=== PATIENT | female | born 1985 | race Caucasian/White ===

== ENCOUNTER 2018-09-02 14:01 | Emergency (ER) | payer OTHER, SELFPAY ==
[2018-09-02 14:05] VITALS: BP 120/78; PULSE 104; RESP 16; TEMP 36.7; O2SAT 96
--- NOTE | 2018-09-02 14:30 | DI.RAD_ITS ---
SYMPTOM/DIAGNOSIS; TRAUMA, PAIN LEFT HAND: Three views. No acute fracture or dislocation is identified. No radiopaque foreign bodies are seen in the soft tissues.
--- NOTE | 2018-09-02 15:29 | DI.VRAD_ITS ---
EXAM: XR Left Hand Complete, 3 or more Views EXAM DATE/TIME: 09/02/2018 2:32 PM CLINICAL HISTORY: 33 years old, female; Signs and symptoms; Other: Left fifth digit trauma; Additional info: Deformity to pip TECHNIQUE: XR Left hand 3 or more views. COMPARISON: No relevant prior studies available. FINDINGS: Bones/joints: Bony alignment is anatomic without evidence for fracture or dislocation. Soft tissues: There is some soft tissue swelling at the proximal phalangeal level. IMPRESSION: No evidence for fracture. COMMENT: Preliminary interpretation is based on receipt of 3 image(s). A final report will be issued subsequently. Dictated and Authenticated by: Kate Jordan MD. Ordering:NENA Juarez MD
--- NOTE | 2018-09-02 15:33 | W.ED.GENAD ---
Discharge Plan Disposition Patient Disposition: HOME Condition: Stable Discharge Details Chief Complaint: Orthopedic Clinical Impression: Sprain of left little finger Primary Care Provider: Mara Du ED Provider: Larry Loyola Home Meds and New Rx's Prescriptions: New ibuprofen [IBU] 600 mg tablet 600 mg PO QID PRN (Reason: pain) Qty: 20 RF: 0 Continued gabapentin 300 mg Capsule 300 mg PO DAILY RF: 0 gabapentin 100 mg Capsule 100 mg PO .QHS RF: 0 Discharge Instructions Instructions: Finger Sprain (ED) Additional Instructions: If not improving over the next 1-2 weeks please call orthopedist for reassessment. Otherwise keep finger splint on for the next week and slowly advance activity as tolerated. Feel free to return to the emergency department for any new or significant worsening of symptoms, severe discoloration or loss of sensation to the digit, or any further concerns you may have. Stand Alone Forms: Work Release Referrals: Jayden Henson MD [ [facility] STAFF PHYSICIAN] - Nabil Vaughan MD [ [facility] STAFF PHYSICIAN] - Matteo Cohn MD [ [facility] STAFF PHYSICIAN] - Discharge Data Discharge Date/Time-TO BE ENTERED AT DEPARTURE: 09/02/18 15:50 Medical Decision Making Patient presenting to the emergency department for chief complaint of left fifth digit injury. Patient states that she was playing basketball and the ball hit directly onto the end of her left fifth digit causing extreme amount of pain and discomfort. Patient denies any other injury or trauma. Patient is primarily right-handed. Physical exam shows significant weakness with both flexion and extension of the left fifth digit but tendons do seem intact, normal sensation with two-point discrimination, normal cap refill, some mild dorsal pain to palpation of the fifth metacarpal. Otherwise hand exam is unremarkable and all other digits, metacarpals, and wrist shows no significant findings. Plan to perform radiological imaging pending results. Review of radiological imaging along with radiologist interpretation shows no evidence of fracture or dislocation. Suspect more of a sprain/ligamentous injury to the fifth digit. Patient placed in foam metal splint and encouraged to use [id number] acetaminophen or Motrin as needed for discomfort and to follow-up with orthopedist if not improving over the next 1-2 weeks. Return precautions were discussed. After discussion of diagnosis and plan of care patient has no further needs, questions, or concerns and states clear understanding to return to the emergency department for any worsening symptoms. HPI General Mode of arrival: ambulatory. Date/Time Provider Initiated Documentation: 09/02/18 14:25. Limitations to Documentation: no limitations. Information obtained by: patient and RN notes reviewed. History of Present Illness 33 year old F presents to the emergency department with the chief complaint of left hand injury, described as severe, with intensity rated at 8. Quality is described as sharp, and is localized to the left and upper extremity. Patient started experiencing this minute(s) (20) and it has been constant. No relieving factors improve symptom(s), Movement worsens symptoms . Patient notes no other symptoms.. Patient did receive the following treatments prior to arrival, none Related Data Home Medications Medication Instructions Recorded Confirmed gabapentin 100 mg PO .QHS 09/02/18 09/02/18 gabapentin 300 mg PO DAILY 09/02/18 09/02/18 ibuprofen [IBU] 600 mg PO QID PRN #20 tab 09/02/18 Previous Rx's Medication Instructions Recorded ibuprofen [IBU] 600 mg PO QID PRN #20 tab 09/02/18 Allergies Allergy/AdvReac Type Severity Reaction Status Date / Time Sulfa (Sulfonamide Allergy Intermediate Skin Rash Unverified 09/02/18 14:08 Antibiotics) General Stated Complaint: Orthopedic FAISAL: 4 Review of Systems Cardiovascular Denies syncope Musculoskeletal Reports as per HPI, Denies numbness and Reports tingling Integumentary/Breasts Denies rash, Denies sores and Denies wounds Neurologic Denies syncope, Denies numbness and Reports tingling PFSH Social History Smoking/Tobacco Use Status: Current every day Drug use: Never Do you feel safe in your relationship?: Yes Exam Const General: cooperative and no acute distress Orientation: alert, awake and oriented x3 Resp Effort & Inspection: normal respiratory effort and able to speak in complete sentences Cardio Rate: regular rate Rhythm: regular rhythm Extrem Right upper extremity: normal to inspection Left upper extremity: wrist Details: normal to inspection, normal ROM and normal vascular exam; no tenderness and hand Details: normal capillary refill, neurosensory exam normal, tendon exam abnormal (weakness to 5th digit with both extension and flexion), tenderness Location: of the 5th digit Location: at the MCP joint, at the proximal phalanx, at the middle phalanx and at the PIP joint, vascular exam Details: radial pulse present and normal capillary refill, swelling Location: of the 5th digit Location: at the proximal phalanx and ecchymosis Location: of the 5th digit Location: at the proximal phalanx Course Vital Signs Temperature 36.7 C 09/02/18 14:05 Pulse 104 H 09/02/18 14:05 Respiratory Rate 16 09/02/18 14:05 Blood Pressure 120/78 09/02/18 14:05 Pulse Oximetry 96 09/02/18 14:05 Temperature 36.7 C 09/02/18 14:05 Temperature Source Skin 09/02/18 14:05 Pulse 104 H 09/02/18 14:05 Respiratory Rate 16 09/02/18 14:05 Respiratory Effort Non-Labored 09/02/18 14:05 Blood Pressure 120/78 09/02/18 14:05 Blood Pressure Position Sitting 09/02/18 14:05 Pulse Oximetry 96 09/02/18 14:05 Oxygen Delivery Method Room Air 09/02/18 14:05 Oxygen Flow Rate 0 09/02/18 14:05 Pain Level 10 09/02/18 14:09
--- NOTE | 2018-09-02 15:39 | ED.GENADUL_ITS ---
Discharge Plan Disposition Patient Disposition: HOME Condition: Stable Discharge Details Chief Complaint: Orthopedic Clinical Impression: Sprain of left little finger Primary Care Provider: Mara Du ED Provider: Larry Loyola Home Meds and New Rx's Prescriptions: New ibuprofen [IBU] 600 mg tablet 600 mg PO QID PRN (Reason: pain) Qty: 20 RF: 0 Continued gabapentin 300 mg Capsule 300 mg PO DAILY RF: 0 gabapentin 100 mg Capsule 100 mg PO .QHS RF: 0 Discharge Instructions Instructions: Finger Sprain (ED) Additional Instructions: If not improving over the next 1-2 weeks please call orthopedist for reassessment. Otherwise keep finger splint on for the next week and slowly advance activity as tolerated. Feel free to return to the emergency department for any new or significant worsening of symptoms, severe discoloration or loss of sensation to the digit, or any further concerns you may have. Stand Alone Forms: Work Release Referrals: Jayden Henson MD [ [facility] STAFF PHYSICIAN] - Nabil Vaughan MD [ [facility] STAFF PHYSICIAN] - Matteo Cohn MD [ [facility] STAFF PHYSICIAN] - Discharge Data Discharge Date/Time-TO BE ENTERED AT DEPARTURE: 09/02/18 15:50 Medical Decision Making Patient presenting to the emergency department for chief complaint of left fifth digit injury. Patient states that she was playing basketball and the ball hit directly onto the end of her left fifth digit causing extreme amount of pain and discomfort. Patient denies any other injury or trauma. Patient is primarily right-handed. Physical exam shows significant weakness with both flexion and extension of the left fifth digit but tendons do seem intact, normal sensation with two-point discrimination, normal cap refill, some mild dorsal pain to palpation of the fifth metacarpal. Otherwise hand exam is unremarkable and all other digits, metacarpals, and wrist shows no significant findings. Plan to perform radiological imaging pending results. Review of radiological imaging along with radiologist interpretation shows no evidence of fracture or dislocation. Suspect more of a sprain/ligamentous injury to the fifth digit. Patient placed in foam metal splint and encouraged to use [id number] acetaminophen or Motrin as needed for discomfort and to follow-up with orthopedist if not improving over the next 1-2 weeks. Return precautions were discussed. After discussion of diagnosis and plan of care patient has no further needs, questions, or concerns and states clear understanding to return to the emergency department for any worsening symptoms. HPI General Mode of arrival: ambulatory . Date/Time Provider Initiated Documentation: 09/02/18 14:25 . Limitations to Documentation: no limitations . Information obtained by: patient and RN notes reviewed . History of Present Illness 33 year old F presents to the emergency department with the chief complaint of left hand injury, described as severe, with intensity rated at 8. Quality is described as sharp, and is localized to the left and upper extremity. Patient started experiencing this minute(s) (20) and it has been constant. No relieving factors improve symptom(s), Movement worsens symptoms . Patient notes no other symptoms.. Patient did receive the following treatments prior to arrival, none Related Data Home Medications Medication Instructions Recorded Confirmed gabapentin 100 mg PO .QHS 09/02/18 09/02/18 gabapentin 300 mg PO DAILY 09/02/18 09/02/18 ibuprofen [IBU] 600 mg PO QID PRN #20 tab 09/02/18 Previous Rx's Medication Instructions Recorded ibuprofen [IBU] 600 mg PO QID PRN #20 tab 09/02/18 Allergies Allergy/AdvReac Type Severity Reaction Status Date / Time Sulfa (Sulfonamide Allergy Intermediate Skin Rash Unverified 09/02/18 14:08 Antibiotics) General Stated Complaint: Orthopedic FAISAL: 4 Review of Systems Cardiovascular Denies syncope Musculoskeletal Reports as per HPI, Denies numbness and Reports tingling Integumentary/Breasts Denies rash, Denies sores and Denies wounds Neurologic Denies syncope, Denies numbness and Reports tingling PFSH Social History Smoking/Tobacco Use Status: Current every day Drug use: Never Do you feel safe in your relationship?: Yes Exam Const General: cooperative and no acute distress Orientation: alert, awake and oriented x3 Resp Effort & Inspection: normal respiratory effort and able to speak in complete sentences Cardio Rate: regular rate Rhythm: regular rhythm Extrem Right upper extremity: normal to inspection Left upper extremity: wrist Details: normal to inspection, normal ROM and normal vascular exam; no tenderness and hand Details: normal capillary refill, neurosensory exam normal, tendon exam abnormal (weakness to 5th digit with both extension and flexion), tenderness Location: of the 5th digit Location: at the MCP joint, at the proximal phalanx, at the middle phalanx and at the PIP joint, vascular exam Details: radial pulse present and normal capillary refill, swell ing Location: of the 5th digit Location: at the proximal phalanx and ecchymosis Location: of the 5th digit Location: at the proximal phalanx Course Vital Signs Temperature 36.7 C 09/02/18 14:05 Pulse 104 H 09/02/18 14:05 Respiratory Rate 16 09/02/18 14:05 Blood Pressure 120/78 09/02/18 14:05 Pulse Oximetry 96 09/02/18 14:05 Temperature 36.7 C 09/02/18 14:05 Temperature Source Skin 09/02/18 14:05 Pulse 104 H 09/02/18 14:05 Respiratory Rate 16 09/02/18 14:05 Respiratory Effort Non-Labored 09/02/18 14:05 Blood Pressure 120/78 09/02/18 14:05 Blood Pressure Position Sitting 09/02/18 14:05 Pulse Oximetry 96 09/02/18 14:05 Oxygen Delivery Method Room Air 09/02/18 14:05 Oxygen Flow Rate 0 09/02/18 14:05 Pain Level 10 09/02/18 14:09
== END 2018-09-02 15:50 | disposition home or self-care (01) ==
PROVIDERS: Emergency Provider Nurse Practitioner Family; PCP Nurse Practitioner Family
DX: S63.617A Unspecified sprain of left little finger, initial encounter (principal); W21.05XA Struck by basketball, initial encounter; Y93.67 Activity, basketball
CPT/HCPCS: 99283; 73130; 99282

== ENCOUNTER 2018-12-27 10:08 | Emergency (ER) | payer OTHER, SELFPAY ==
[2018-12-27 10:11] VITALS: BP 128/84; PULSE 98; RESP 18; TEMP 37.2; O2SAT 98
--- NOTE | 2018-12-27 10:20 | ED.GENADUL_ITS ---
Discharge Plan Disposition Patient Disposition: HOME Condition: Good Discharge Details Chief Complaint: Orthopedic Clinical Impression: Abrasion of ankle Primary Care Provider: Mara Du ED Provider: Sabine Hercules Home Meds and New Rx's Prescriptions: Continued gabapentin 300 mg Capsule 300 mg PO DAILY RF: 0 gabapentin 100 mg Capsule 100 mg PO .QHS RF: 0 ibuprofen [IBU] 600 mg tablet 600 mg PO QID PRN (Reason: pain) Qty: 20 RF: 0 Discharge Instructions Instructions: Abrasion (ED) Additional Instructions: Encourage rest, ice, elevation. Tylenol and ibuprofen as needed for discomfort. Please keep wounds clean and dry. Monitor for signs of infection including redness, warmth, drainage, increased pain, fever/chills. If these or other new/worsening symptoms arise please seek care urgently once again. Wash with soap and water and she would typically. Please follow-up with primary care as needed. Tetanus updated today. Referrals: Mara Du [Primary Care Provider] - Discharge Data Discharge Date/Time-TO BE ENTERED AT DEPARTURE: 12/27/18 10:42 Medical Decision Making Patient is a 33-year-old female presenting today with chief complaint of abrasion to the left ankle. She reports a prior to arrival she was walking in a baseball field when she fell in an unseen hole and suffered abrasions to the medial lateral aspect of the colon unknown material. States that there was liquid in the buitrago. Patient is not up-to-date on tetanus, will update this today. On exam, patient has full range of motion. Ambulates normally without any evidence of antalgic gait. Abrasions are superficial, these were cleansed with a baseball field. We will clean his further. I do not see any evidence of a puncture wound or laceration requiring repair. Patient's primary concern for possible infection. Is there is no evidence of puncture wound, the slight laceration, patient is not otherwise immunocompromised, I do not feel that prophylaxis is appropriate at this time. Rather, we will clean the wounds, updated tetanus and discussed wound care. Do not have suspicion for fracture at this point. she was given strict return precautions, in particular the signs of infection. Wound care was discussed. All questions and concerns were addressed, she in agreement with this plan. HPI General Mode of arrival: ambulatory . Date/Time Provider Initiated Documentation: 12/27/18 10:12 . Limitations to Documentation: no limitations . Information obtained by: patient, family and RN notes reviewed . History of Present Illness 33 year old F presents to the emergency department with the chief complaint of left ankle abrasions, described as mild, with intensity rated at 2. Quality is described as aching, and is localized to the left and lower extremity. Patient reports no radiation. Patient started experiencing this minute(s) and it has been constant. Immobilization improves symptom(s), Movement worsens symptoms . Patient notes no other symptoms.. Patient did receive the following treatments prior to arrival, none Related Data Home Medications Medication Instructions Recorded Confirmed gabapentin 100 mg PO .QHS 09/02/18 09/02/18 gabapentin 300 mg PO DAILY 09/02/18 09/02/18 ibuprofen [IBU] 600 mg PO QID PRN #20 tab 09/02/18 Previous Rx's Medication Instructions Recorded ibuprofen [IBU] 600 mg PO QID PRN #20 tab 09/02/18 Allergies Allergy/AdvReac Type Severity Reaction Status Date / Time Sulfa (Sulfonamide Allergy Intermediate Skin Rash Unverified 09/02/18 14:08 Antibiotics) General Stated Complaint: Orthopedic FAISAL: 4 Review of Systems Constitutional Reports as per HPI, Denies chills, Denies fever(s), Denies headache(s) and Denies weakness ENT Denies headache(s) Cardiovascular Reports as per HPI Respiratory Reports as per HPI and Denies cough Musculoskeletal Reports as per HPI and Denies tingling Integumentary/Breasts Reports as per HPI and Reports wounds Neurologic Reports as per HPI, Denies headache(s), Denies tingling, Denies paresthesias and Denies weakness [facility] Social History Smoking/Tobacco Use Status: Current every day Alcohol Intake: never Drug use: Never Do you feel safe in your relationship?: Yes Exam Const General: cooperative, healthy appearing, comfortable, no acute distress, well developed and well groomed Nutritional Appearance: average body habitus and well nourished Orientation: alert and awake Resp Effort & Inspection: normal respiratory effort, able to speak in complete sentences and no respiratory distress Cardio Rate: regular rate Rhythm: regular rhythm Skin General skin exam: no ecchymosis, no erythema, no fluctuance and no induration Trauma: abrasion (to medial and lateral left ankle.) and no punctures noted Neuro General: alert and awake Cognition: normal cognition Speech: speech normal Gait: normal gait Motor: muscle tone normal throughout Sensory Exam: no sensory deficits noted Extrem Left lower extremity: full ROM, normal capillary refill, no joint enlargement, knee Details: normal to inspection; no tenderness, lower leg Details: normal to inspection; no tenderness, ankle Details: no edema, normal ROM and abrasion; inspection abnormal (abrasions as above), no tenderness, no swelling, no warmth, no ecchymosis, no crepitus, no penetrating wound and achilles tendon exam no rmal and foot Details: normal capillary refill, normal to inspection, no edema, vascular exam Details: dorsalis pedis pulse present and posterior tibial pulse present and tendon exam Details: active flexion normal and active extension normal; no tenderness, no lacerations and no ecchymosis; abnormal to inspection (abrasions as above) Psych Appearance: grossly normal and well kempt Mental Status: mental status grossly normal Speech and Movement: speech and movement normal Course Vital Signs Temperature 37.2 C 12/27/18 10:11 Pulse 98 H 12/27/18 10:11 Respiratory Rate 18 12/27/18 10:11 Blood Pressure 128/84 12/27/18 10:11 Pulse Oximetry 98 12/27/18 10:11 Temperature 37.2 C 12/27/18 10:11 Temperature Source Temporal Artery Scan 12/27/18 10:11 Pulse 98 H 12/27/18 10:11 Respiratory Rate 18 12/27/18 10:11 Respiratory Effort Non-Labored 12/27/18 10:11 Blood Pressure 128/84 12/27/18 10:11 Blood Pressure Position Sitting 12/27/18 10:11 Pulse Oximetry 98 12/27/18 10:11 Oxygen Delivery Method Room Air 12/27/18 10:11 Oxygen Flow Rate 0 12/27/18 10:11 Pain Level 0 12/27/18 10:17
== END 2018-12-27 10:42 | disposition home or self-care (01) ==
LOC: ER 10:30
PROVIDERS: Emergency Provider Physician Assistant; PCP Nurse Practitioner Family
DX: S90.512A Abrasion, left ankle, initial encounter (principal); W17.2XXA Fall into hole, initial encounter
CPT/HCPCS: 90471; 99284; 99283

== ENCOUNTER 2018-12-29 20:56 | Emergency (ER) | payer OTHER, SELFPAY ==
[2018-12-29 21:03] VITALS: BP 119/82; PULSE 105; RESP 18; TEMP 36.6; O2SAT 99
--- NOTE | 2018-12-29 21:12 | DI.RAD_ITS ---
SYMPTOM/DIAGNOSIS: FELL, NOW PAIN AND SWELLING LEFT ANKLE: Three views were obtained. The ankle mortise is well maintained. No fracture is seen.
--- NOTE | 2018-12-29 21:13 | W.ED.GENAD ---
Discharge Plan Discharge Details Chief Complaint: Orthopedic Primary Care Provider: Mara Du ED Provider: Nabil Smith Home Meds and New Rx's Prescriptions: No Action gabapentin 300 mg Capsule 300 mg PO DAILY RF: 0 gabapentin 100 mg Capsule 100 mg PO .QHS RF: 0 ibuprofen [IBU] 600 mg tablet 600 mg PO QID PRN (Reason: pain) Qty: 20 RF: 0 Medical Decision Making 33-year-old female presents from home with persistent ankle pain and swelling after fall 2 days ago. She was seen in the emergency department and discharged home. She now has ecchymosis and discomfort that is increasing. No fever, there is a significant erythema, but must exclude cellulitis developing. She is referred for x-ray today which does not reveal underlying fracture. I do think she is at risk for developing skin infection and I will place her on a course of Keflex. She will utilize a equalizer walking boot as needed for comfort. She is stable for discharge home HPI General Mode of arrival: ambulatory. Date/Time Provider Initiated Documentation: 12/29/18 21:02. Limitations to Documentation: no limitations. Information obtained by: patient. History of Present Illness 33 year old F presents to the emergency department with the chief complaint of Left ankle pain, described as moderate, Quality is described as aching and dull, and is localized to the left and lower extremity. Patient reports no radiation. Patient started experiencing this day(s) and it has been constant. Rest improves symptom(s), Movement worsens symptoms . Patient notes no other symptoms.. Patient did receive the following treatments prior to arrival, none Related Data Home Medications Medication Instructions Recorded Confirmed gabapentin 100 mg PO .QHS 09/02/18 12/29/18 gabapentin 300 mg PO DAILY 09/02/18 12/29/18 ibuprofen [IBU] 600 mg PO QID PRN #20 tab 09/02/18 12/29/18 Previous Rx's Medication Instructions Recorded ibuprofen [IBU] 600 mg PO QID PRN #20 tab 09/02/18 Allergies Allergy/AdvReac Type Severity Reaction Status Date / Time Sulfa (Sulfonamide Allergy Intermediate Skin Rash Unverified 12/29/18 21:07 Antibiotics) General Stated Complaint: Orthopedic FAISAL: 4 Review of Systems Review of Systems 6 systems reviewed and otherwise negative [facility] Social History Smoking/Tobacco Use Status: Current every day Alcohol Intake: never Drug use: Never Do you feel safe in your relationship?: Yes Exam Narrative Exam Narrative: GEN: awake, alert, oriented 3. Pleasant, well groomed, interactive. HEAD: Normocephalic, atraumatic EXT: Full ROM, there are abrasions to the bilateral aspects of the left lower extremity distal tibia. Tenderness, swelling, ecchymosis of the ankle. 2+ DP bilaterally. Range of motion is intact. Sensation intact throughout. Neuro: Grossly normal neurologic exam, conversant, interactive. Psych: Speech fluent, thoughts congruent, affect normal Course Vital Signs Temperature 36.6 C 12/29/18 21:03 Pulse 105 H 12/29/18 21:03 Respiratory Rate 18 12/29/18 21:03 Blood Pressure 119/82 12/29/18 21:03 Pulse Oximetry 99 12/29/18 21:03 Temperature 36.6 C 12/29/18 21:03 Temperature Source Temporal Artery Scan 12/29/18 21:03 Pulse 105 H 12/29/18 21:03 Respiratory Rate 18 12/29/18 21:03 Respiratory Effort Non-Labored 12/29/18 21:03 Blood Pressure 119/82 12/29/18 21:03 Blood Pressure Position Sitting 12/29/18 21:03 Pulse Oximetry 99 12/29/18 21:03 Oxygen Delivery Method Room Air 12/29/18 21:03 Oxygen Flow Rate 0 12/29/18 21:03 Pain Level 8 12/29/18 21:08
[2018-12-29] MEDS: Cephalexin 500 MG CAP PO (21:28)
[2018-12-29] MEDS: Acetaminophen 500 MG TAB 1000 MG PO (21:29)
--- NOTE | 2018-12-29 21:38 | DI.VRAD_ITS ---
EXAM: XR Left Ankle EXAM DATE/TIME: 12/29/2018 9:13 PM CLINICAL HISTORY: 33 years old, female; Ankle; Left; Prior surgery; Patient HX: Fall, willie pain, swelling; Per PT: Fell in sinkhole TECHNIQUE: Imaging protocol: XR Left ankle. Views: 3 or more views. COMPARISON: No relevant prior studies available. FINDINGS: Bones/joints: No recent fracture or dislocation is identified. Soft tissues: Normal. IMPRESSION: No recent fracture or dislocation is identified. Dictated and Authenticated by: Mina Cardozo MD. Ordering:SPENCER Ferrer MD
== END 2018-12-29 21:34 | disposition home or self-care (01) ==
PROVIDERS: Emergency Provider Emergency Medicine; PCP Nurse Practitioner Family
DX: L03.116 Cellulitis of left lower limb (principal)
CPT/HCPCS: 29515; 99283; 73610; L4361

== ENCOUNTER 2019-03-25 17:23 | Outpatient (REF) | payer OTHER, SELFPAY | END 2019-03-25 17:43 | LOC: NCHCO 17:23 | PROVIDERS: PCP Nurse Practitioner Family; Visit Provider Nurse Practitioner Family | DX: N39.0 Urinary tract infection, site not specified (principal) | CPT/HCPCS: 87077; 87086; 87186 ==

== ENCOUNTER 2019-06-17 13:50 | Emergency (ER) | payer OTHER, SELFPAY ==
[2019-06-17 13:54] VITALS: BP 119/85; PULSE 120; RESP 18; TEMP 36.9; O2SAT 96
--- NOTE | 2019-06-17 14:07 | ED.GENADUL_ITS ---
Discharge Plan Disposition Patient Disposition: HOME Condition: Good Discharge Details Chief Complaint: Abd Prob Clinical Impression: Abdominal pain, Gastritis Primary Care Provider: Mara Du ED Provider: Sharath Crowell Home Meds and New Rx's Prescriptions: No Action gabapentin 300 mg Capsule 300 mg PO DAILY RF: 0 gabapentin 100 mg Capsule 100 mg PO .QHS RF: 0 ibuprofen [IBU] 600 mg tablet 600 mg PO QID PRN (Reason: pain) Qty: 20 RF: 0 Discharge Instructions Instructions: Gastritis (ED), Abdominal Pain (ED) Additional Instructions: At this time your CT scan shows no evidence of appendicitis or other significant abnormality in the stomach. Your hernia appears mildly irritated, but no other significant abnormalities. At this time feel that you may still be dealing with continued mild irritation from most likely a virus before. Recommend continue to drink fluids, stick with soups and Jell-O. I would recommend gradually adding plain rice, plain oatmeal, bananas, and applesauce. Please continue to take Pepto-Bismol. If you notice any worsening of your symptoms, or any new symptoms such as vomiting, diarrhea, fever, chills, shortness of breath, chest pain, numbness, weakness, or fainting , please return immediately to the emergency department for reevaluation. Please follow up with your primary care provider as soon as possible for reassessment and reevaluation. As always, it was a pleasure participating in your medical care today. Referrals: Mara Du [Primary Care Provider] - Discharge Data Discharge Date/Time-TO BE ENTERED AT DEPARTURE: 06/17/19 18:00 Medical Decision Making <Shira Ford MD - Last Filed: 06/28/19 10:02> Karoline Almeida is a 34 y/o woman with history of abdominal hernias status post repair presenting to the emergency department with right lower quadrant pain, diarrhea, vomiting and fever now resolved. On exam patient is very well and nontoxic appearing. Benign cardiopulmonary exam. Mild McBurney's point tenderness to palpation without rebound or guarding, no other abdominal tenderness. Concern for possible appendicitis versus gastroenteritis versus other. Exam/history is not consistent with acute aortic process, sepsis, ovarian torsion. Plan for screening labs, CT abdomen/pelvis, IV fluid hydration. Patient declines pain medication at this time. Labs reviewed, significant for mild leukocytosis, normal creatinine, negative UA. Patient signed out at time of shift change with CT abdomen/pelvis, reassessment pending. Medical Records Medical records reviewed: Yes I reviewed the patient's medical records. Lab Data Lab results reviewed: Yes I reviewed the patient's lab results. <Sharath Crowell, DO - Last Filed: 06/17/19 17:56> Please refer to Dr. Shira Ford's note for HPI, physical exam, and initial assessment and plan. Patient was signed out to me by my colleague Dr. Ford, pending CT scan of the abdomen. Per history the patient has had mild nausea, upset stomach with mild diarrhea for the last few days, she has also had a mild fever. Upon arrival here she had mild right lower quadrant pain, CT scan was ordered to evaluate for acute intra-abdominal process. Laboratory work-up was notably unremarkable, white count of 11.34, minimal left shift, no bandemia. No electrolyte abnormalities, urinalysis negative. CT scan shows evidence of bibasilar infiltrates versus atelectasis however clinically the patient has no significant cough shortness of breath or clinical symptoms of pneumonia. I suspect that this is atelectasis and not pneumonia as there is no clinical evidence of that. She does have a small periumbilical hernia containing omental fat with infiltration into the subcutaneous tissue, however there is no evidence of kennedy abscess, with no significant other abnormality on labs there is no evidence of hernia incarceration. Repeat bedside exam time of discharge demonstrates minimal tenderness at the hernia location, it is easily reducible, with no evidence of strangulation or incarceration. At this time I feel that the patient is likely recovering from what I would suspect to be initially a viral gastroenteritis, with no other evidence at this time of an acute surgical pathology of the abdomen. Patient is feeling well and would like to go home. Will discharge with recommendations for continued liquid diet with gradual progress to applesauce, bananas, rice and oatmeal. We discussed red flags which to return as well as the importance of close follow-up with her primary care provider Dr. Mara Du. I have extensively reviewed the treatment plan and discharge instructions with the patient. I have addressed all patient concerns at this time. The patient was made aware of what symptoms to monitor for that would warrant a return to the emergency department. Discussed the plan with the patient, they demonstrate verbal understanding and agreement with our assessment and plan at this time. Also of note though the patient has had mild diarrhea she has had no melena, hematochezia, recent antibiotics, foreign travel, or other sick contacts. No clinical evidence of significant infectious diarrhea. FINDINGS: Lungs: Bibasilar infiltrates versus atelectasis. Liver: Normal. No mass. Gallbladder and bile ducts: Normal. No calcified stones. No ductal dilation. Pancreas: Normal. No ductal dilation. Spleen: Normal. No splenomegaly. Adrenals: Normal. No mass. Kidneys and ureters: Normal. No hydronephrosis. Stomach and bowel: Contracted stomach. Mild prominence of proximal small bowel with enhancement of the wall. The jejunum and ileum are unremarkable. Appendix: No evidence of appendicitis. Intraperitoneal space: Unremarkable. No free air. No significant fluid collection. Vasculature: Unremarkable. No abdominal aortic aneurysm. Lymph nodes: Unremarkable. No enlarged lymph nodes. Bladder: Distended urinary bladder with the dome near L5-S1. Reproductive: The uterus and left ovary are not identified. The right ovary contains several follicular cysts. Bones/joints: Unremarkable. No acute fracture Soft tissues: Right para umbilical hernia containing omental fat series 3, image 42 with inflammation of the subcutaneous tissue. IMPRESSION: 1. Bibasilar infiltrates versus atelectasis. 2. Right paraumbilical hernia containing omental fat with infiltration of the subcutaneous tissue 3. Contracted stomach. Prominent of proximal small bowel without evidence of obstruction. 4. Distended urinary bladder. Thank you for allowing us to participate in the care of your patient. Dictated and Authenticated by: Milagro Frost MD 06/17/2019 5:29 PM Eastern Time ([place] & [place]) HPI <Shira Ford MD - Last Filed: 06/28/19 10:02> General Mode of arrival: ambulatory . Date/Time Provider Initiated Documentation: 06/17/19 14:06 . Limitations to Documentation: no limitations . Information obtained by: patient, RN notes reviewed and old records reviewed . HPI Narrative: Karoline Almeida is a 34 y/o woman with history of abdominal hernias, hysterectomy in the past presenting to the emergency department with abdominal pain. Patient reports that 3 days ago she developed vomiting, and also had a fever to 104. Patient reports that during that time she noticed a red rash. Patient reports that the next day her vomiting resolved, as did her fever and rash. Patient reports that she has had no fever or vomiting since then. Patient reports that she then developed diarrhea, with last episode late yesterday. Patient has not had a bowel movement since then. Patient reports that she had had no pain up until this morning at 1 AM, when she was awoken with right lower quadrant pain. Patient reports that pain is worse with walking. She denies any other pain, shortness of breath, cough, nasal congestion, numbnes s, weakness, constipation. Related Data Home Medications Medication Instructions Recorded Confirmed gabapentin 100 mg PO .QHS 09/02/18 06/17/19 gabapentin 300 mg PO DAILY 09/02/18 06/17/19 ibuprofen [IBU] 600 mg PO QID PRN #20 tab 09/02/18 06/17/19 Previous Rx's Medication Instructions Recorded ibuprofen [IBU] 600 mg PO QID PRN #20 tab 09/02/18 Allergies Allergy/AdvReac Type Severity Reaction Status Date / Time Sulfa (Sulfonamide Allergy Intermediate Skin Rash Unverified 06/17/19 13:59 Antibiotics) General Stated Complaint: Abd Prob FAISAL: 3 Review of Systems <Shira Ford MD - Last Filed: 06/28/19 10:02> Narrative: Constitutional: denies fevers Eyes: denies eye pain ENT: denies ear pain, dental pain, sore throat Cardiovascular: denies chest pain Respiratory: denies SOB, cough GI: Denies melena, hematochezia, reports abdominal pain, vomiting, diarrhea : denies flank pain, dysuria MSK: denies back pain, neck pain, arthralgias, myalgias Skin: denies rash Neuro: denies headaches, numbness, weakness PFSH <Shira Ford MD - Last Filed: 06/28/19 10:02> Social History Smoking/Tobacco Use Status: Current every day Alcohol Intake: never Drug use: Never Do you feel safe at home: Yes Do you feel safe in your relationship?: Yes Exam <Shira Ford MD - Last Filed: 06/28/19 10:02> Narrative Exam Narrative: Constitutional: well and [id number], pleasant, conversing normally HENT: head atraumatic/normocephalic/normal inspection, mucous membranes moist Eyes: conjunctiva normal, sclera normal, pupils 3mm b/l Neck: no stridor, normal ROM, trachea midline Chest: normal inspection Resp: normal work of breathing, LCTAB Cardio: normal rate, normal rhythm, no murmur appreciated GI: abdomen soft, mild tenderness to palpation right lower quadrant, positive tenderness at McBurney's point, no rebound, no guarding, no other abdominal tenderness palpation, no pelvic or suprapubic tenderness to palpation, non- distended Back: normal inspection, no rash Skin: warm, dry, normal color, no rash Neuro: alert, not altered, grossly non-focal, normal tone Ext: no edema Psych: normal mood, normal affect, normal behavior Course <Shira Ford MD - Last Filed: 06/28/19 10:02> Vital Signs Vital signs: Vital Signs Temperature 36.9 C 06/17/19 13:54 Pulse 120 H 06/17/19 13:54 Respiratory Rate 18 06/17/19 13:54 Blood Pressure 119/85 06/17/19 13:54 Pulse Oximetry 96 06/17/19 13:54 Temperature 36.9 C 06/17/19 13:54 Temperature Source Temporal Artery Scan 06/17/19 13:54 Pulse 120 H 06/17/19 13:54 Respiratory Rate 18 06/17/19 13:54 Respiratory Effort Non-Labored 06/17/19 14:00 Blood Pressure 119/85 06/17/19 13:54 Blood Pressure Position Sitting 06/17/19 13:54 Pulse Oximetry 96 06/17/19 13:54 Oxygen Delivery Method Room Air 06/17/19 13:54 Oxygen Flow Rate 0 06/17/19 13:54 Pain Level 7 06/17/19 13:54 Sign Out <Shira Ford MD - Last Filed: 06/28/19 10:02> Sign Out Data: Sign Out Comment: Patient signed out to Dr. Crowell at time of shift change with CT abdomen/pelvis pending Last updated by Shira Ford MD at 06/17/19 17:19
[2019-06-17] MEDS: Normal Saline 1,000 ML 1000 ML IV (14:20)
[2019-06-17 14:21] LABS: Bilirubin Negative (Negative); Blood Trace-intact (Negative); Clarity Clear (Clear); Glucose Negative (Negative); Ketones Negative (Negative); Leukocyte Esterase Negative (Negative); Nitrite Negative (Negative); Urobilinogen 0.2 EU/dL (Up TO 0.2); pH 5.5 (5-8)
[2019-06-17 14:34] LABS: Abs Immature Grans 0.03 k/cumm (0.0-0.09); Absolute Basophil Count 0.06 k/cumm (0.0-0.2); Absolute Eosinophil Count 0.16 k/cumm (0.0-0.7); Absolute Lymphocyte Count 3.22 k/cumm (1.2-3.4); Absolute Monocyte Count 0.59 k/cumm (0.11-0.7); Absolute Neutrophil Count 7.28 k/cumm (1.2-6.7); Basophils % 0.5; Eosinophils % 1.4; HCT 40.2 % (36.0-46.0); HGB 13.8 g/dL (12.0-15.5); Immature Grans % 0.3; Lymphocytes % 28.4; Mean Corp. HGB Concentration 34.3 g/dL (32.0-36.0); Mean Corpuscular Hemoglobin 30.4 pg (27.0-33.0); Mean Corpuscular Volume 88.5 fL (80-95); Mean Platelet Volume 10.1 fL (8.0-11.0); Monocytes % 5.2; Neutrophils % 64.2; Platelet Count 345 x1000/uL (130-400); RBC 4.54 m/cumm (4.00-5.20); RBC Distribution Width 12.4 % (11.7-14.6); White Blood Cell Count 11.34 k/cumm (4.4-10.8)
[2019-06-17 14:39] LABS: Epithelial Cells Many HPF (Negative); RBC Negative HPF (0-2); WBC 0-2 HPF (0-5)
[2019-06-17 14:40] LABS: Bacteria Few HPF (Negative); C & S Indicated? No/Sq. Contamination; Casts Negative LPF (Negative); Crystals Negative HPF (Negative); Mucus Negative (Negative)
[2019-06-17 14:57] LABS: ALT 19 U/L (14-59); AST 14 U/L (15-37); Albumin 4.2 g/dL (3.4-5.0); Alkaline Phosphatase 78 U/L (46-116); Anion Gap 11.4 mmol/L (3-11); BUN 9 mg/dL (7-18); Bilirubin, Total 0.2 mg/dL (0.2-1.0); CO2 24.6 mmol/L (21.0-32.0); CREATININE 0.65 mg/dL (0.55-1.02); Chloride 104 mmol/L (98-107); Glucose 98 mg/dL (74-106); Lipase 71 U/L (73-393); Potassium 3.6 mmol/L (3.5-5.1); Sodium 140 mmol/L (136-145); Total Protein 7.3 g/dL (6.4-8.2)
[2019-06-17] MEDS: Ondansetron 4 MG/2 ML VIAL IVP (15:27)
[2019-06-17] MEDS: Omnipaque 350 MG/ML 100 ML BTL IJ (16:47)
--- NOTE | 2019-06-17 16:47 | DI.CT_ITS ---
EXAM: CT ABDOMEN PELVIS W CLINICAL HISTORY: RLQ pain, vomiting, diarrhea TECHNIQUE: Imaging Protocol: Axial computed tomography images with coronal and sagittal reformatted images were created and reviewed CONTRAST MATERIAL: Intravenous: Omnipaque 350 Contrast volume:100 mL contrast route:IV - Oral: No COMPARISON: No exams were available for comparison FINDINGS: ABDOMEN: Lung Bases: Bilateral basilar infiltrates are present. Liver: Normal density. No measurable mass. The portal, superior mesenteric and splenic veins are chan nt. Gallbladder and biliary tract: No radiodense calculus or dilation. Pancreas: Normal density, no abnormal calcifications or inflammatory process. Spleen: Normal. Kidneys: Normal size, contour and axis. No radiodense stones or obstructive uropathy. No masses seen. Adrenal glands: No masses seen. Abdominal Aorta: Abdominal portion non-dilated. Incidental note is made of a retroaortic left renal vein. PELVIS: Bladder: Distended but no wall thickening is seen. Bowel: The stomach is not distended. There is no bowel wall thickening. There is a normal appendix in the right lower quadrant. Peritoneal cavity: No ascites, collection or mesenteric inflammatory response. There is a small fat c ontaining right paraumbilical hernia Bones: Within normal limits. Reproductive organs: Within normal limits. Right ovary is mildly enlarged with multiple follicular cy sts. The left ovary is not visualized. Lymph nodes: Unremarkable. Impression: 1. Small bilateral basilar pulmonary infiltrates. This may represent atelectasis or pneumonia. 2. Normal appendix. 3. No evidence of an acute abdominal or pelvic process. DATA REPOSITORY: All CT scans at this facility are submitted to the National Radiology Data Registry (NRDR) Dose Index Registry (DIR) with the [employer] (ACR). RADIATION OPTIMIZATION: All CT scans at this facility use at least one of these dose optimization te chniques: automated exposure control; mA and/or kV adjustment per patient size (includes targeted exa ms where dose is matched to clinical indication); or iterative reconstruction.
--- NOTE | 2019-06-17 17:29 | DI.VRAD_ITS ---
PROCEDURE INFORMATION: Exam: CT Abdomen And Pelvis With Contrast Exam date and time: 06/17/2019 4:44 PM Age: 34 years old Clinical indication: Nausea and vomiting TECHNIQUE: Imaging protocol: Computed tomography of the abdomen and pelvis with intravenous contrast. COMPARISON: No relevant prior studies available. FINDINGS: Lungs: Bibasilar infiltrates versus atelectasis. Liver: Normal. No mass. Gallbladder and bile ducts: Normal. No calcified stones. No ductal dilation. Pancreas: Normal. No ductal dilation. Spleen: Normal. No splenomegaly. Adrenals: Normal. No mass. Kidneys and ureters: Normal. No hydronephrosis. Stomach and bowel: Contracted stomach. Mild prominence of proximal small bowel with enhancement of the wall. The jejunum and ileum are unremarkable. Appendix: No evidence of appendicitis. Intraperitoneal space: Unremarkable. No free air. No significant fluid collection. Vasculature: Unremarkable. No abdominal aortic aneurysm. Lymph nodes: Unremarkable. No enlarged lymph nodes. Bladder: Distended urinary bladder with the dome near L5-S1. Reproductive: The uterus and left ovary are not identified. The right ovary contains several follicular cysts. Bones/joints: Unremarkable. No acute fracture. Soft tissues: Right para umbilical hernia containing omental fat series 3, image 42 with inflammation of the subcutaneous tissue. IMPRESSION: 1. Bibasilar infiltrates versus atelectasis. 2. Right paraumbilical hernia containing omental fat with infiltration of the subcutaneous tissue 3. Contracted stomach. Prominent of proximal small bowel without evidence of obstruction. 4. Distended urinary bladder. Dictated and Authenticated by: Milagro Frost MD. Ordering:REGIS Silva MD
[2019-06-17 18:05] VITALS: BP 119/85; PULSE 120; RESP 18; TEMP 36.9; O2SAT 96
== END 2019-06-17 18:00 | disposition home or self-care (01) ==
PROVIDERS: Student in an Organized Health Care Education/Training Program; Emergency Provider Student in an Organized Health Care Education/Training Program; PCP Nurse Practitioner Family
DX: R11.0 Nausea (principal); R10.31 Right lower quadrant pain; R50.9 Fever, unspecified; K29.00 Acute gastritis without bleeding
CPT/HCPCS: 36415; 80053; 81025; 83690; 96361; 96374; 96375; 96376; 99285; 74177; 81003; 81015; 85025; 99281; J2405; J3490

== ENCOUNTER 2020-04-09 01:45 | Outpatient (CLI) | payer OTHER, SELFPAY ==
--- NOTE | 2020-04-09 | DI.US_ITS ---
EXAM: US SOFT TISSUE EXTREMITY CLINICAL HISTORY: RT HAND PAIN, M79.641,PARESTHESIAS RT LAST 2 DIGITS, ? GANGLION CYST ULNAR. TECHNIQUE: Ultrasound was performed using standard protocol. COMPARISON: No exams were available for comparison FINDINGS: Sonographic assessment utilizing grayscale and color Doppler imaging was performed and targeted to th e area of clinical concern. No cystic or solid masses are seen sonographically in the area of concern. IMPRESSION: Negative examination. DATA REPOSITORY:
== END 2020-04-09 02:05 ==
PROVIDERS: PCP Nurse Practitioner Family; Visit Provider Nurse Practitioner Family
DX: M79.641 Pain in right hand (principal); R20.2 Paresthesia of skin
CPT/HCPCS: 76881

== ENCOUNTER 2020-05-13 00:51 | Outpatient (CLI) | payer OTHER, SELFPAY ==
--- NOTE | 2020-05-13 09:35 | DI.MRI_ITS ---
EXAM: MR UPPER JOINT RT WO CLINICAL HISTORY: R HAND PAIN AND NUMBNESS,ULNAR NERVE ENTRAPMENT RT WRIST,G56.20. TECHNIQUE: Multiplanar multisequence MRI was performed. COMPARISON: None. FINDINGS: BONES: There is no fracture or contusion pattern. JOINTS: The radiocarpal joint is unremarkable. The carpal joints are unremarkable. TENDONS: Flexors: Unremarkable. Extensors: Unremarkable. MUSCLES: Unremarkable. MEDIAN NERVE: Unremarkable on this noncontrast examination. SOFT TISSUES: Unremarkable. LIGAMENTS: Unremarkable. TRIANGULAR FIBROCARTILAGE: There is intermediate signal seen within the substance of the TFCC suspici ous for degeneration. OTHER: There is a small cyst adjacent to the posterior medial aspect of the pisotriquetral joint whic h may represent a small synovial cyst. It does not appear to impact upon the course of the ulnar ner ve. There is no soft tissue mass seen in or around the region of the ulnar nerve. IMPRESSION: 1. No evidence of a soft tissue mass in or around the region of the ulnar nerve. 2. Intermediate signal seen within the substance of the TFCC suspicious for degeneration. Partial te ar cannot be excluded. 3. Small cyst adjacent to the posterior medial aspect of the pisotriquetral joint which may represent a small synovial cyst. DATA REPOSITORY:
== END 2020-05-13 01:11 ==
PROVIDERS: PCP Nurse Practitioner Family; Visit Provider Student in an Organized Health Care Education/Training Program
DX: G56.20 Lesion of ulnar nerve, unspecified upper limb (principal)
CPT/HCPCS: 73221

== ENCOUNTER 2021-07-29 19:05 | Emergency (ER) | payer OTHER, SELFPAY ==
[2021-07-29 19:18] VITALS: BP 124/82; PULSE 112; RESP 16; TEMP 36.7; O2SAT 96
--- NOTE | 2021-07-29 19:45 | ED.GENADUL_ITS ---
Discharge Plan Disposition Patient Disposition: HOME Condition: Stable Discharge Details Clinical Impression: Cough Primary Care Provider: Mara Du ED Provider: Jd Gregory Home Meds and New Rx's Prescriptions: Continued gabapentin 300 mg Capsule 300 mg PO DAILY RF: 0 gabapentin 100 mg Capsule 100 mg PO .QHS RF: 0 ibuprofen [IBU] 600 mg tablet 600 mg PO QID PRN (Reason: pain) Qty: 20 RF: 0 Discharge Instructions Instructions: Acute Cough (ED) Additional Instructions: Given your symptoms alongside a positive home test, presumptively I believe you have Covid. We discussed the latest CDC quarantining guidelines. A Covid test has been obtained and is pending, will likely result in the next 2-3 days. Please watch for new or worsening symptoms and return to the ER for any concerns. Kbgn-wwi-yorwkjx medications as directed for symptomatic control. Please contact the office of your primary care provider tomorrow to discuss your ER visit need for outpatient reevaluation Medical Decision Making 36-year-old female, current smoker, fully vaccinated against COVID with her booster, presents for symptoms that began this morning. Dry cough, loss of taste and smell. Denies fever, chest pain, shortness of breath. Patient took a home Covid test which was positive, work needed another test to confirm, she was unable to get to a testing site so came to the ER for evaluation. In triage her heart rate was 112 however during my examination was 92. She appears well, nontoxic, O2 sat 96% on room air, extremely low suspicion for PE. Patient is only requesting a COVID test. Will obtain a send out Covid test. The latest [facility] recommendations for quarantining were discussed. We discussed the importance of hgrb-qha-hysojet medications as directed for symptomatic control. Strict discharge and return precautions were provided Medical Records Medical records reviewed: Yes I reviewed the patient's medical records. HPI General Mode of arrival: ambulatory . Date/Time Provider Initiated Documentation: 07/29/21 19:06 . Limitations to Documentation: no limitations . Information obtained by: patient . History of Present Illness 36 year old F presents to the emergency department with the chief complaint of Requesting a COVID test, described as mild, with intensity rated at 1. Quality is described as aching, and is localized to the face and chest. Patient reports no radiation. Patient started experiencing this hour(s) (12) and it has been constant. No relieving factors improve symptom(s), No exacerbating factors reported . Patient notes cough and other (Nasal congestion, loss of taste and smell); denies fever/chills and headaches. Patient did receive the following treatments prior to arrival, none Related Data Home Medications Medication Instructions Recorded Confirmed gabapentin 100 mg PO .QHS 09/02/18 07/29/21 gabapentin 300 mg PO DAILY 09/02/18 07/29/21 ibuprofen [IBU] 600 mg PO QID PRN #20 tab 09/02/18 07/29/21 Previous Rx's Medication Instructions Recorded ibuprofen [IBU] 600 mg PO QID PRN #20 tab 09/02/18 Allergies Allergy/AdvReac Type Severity Reaction Status Date / Time Sulfa (Sulfonamide Allergy Intermediate Skin Rash Unverified 07/29/21 19:24 Antibiotics) General Stated Complaint: GenMedical FAISAL: 4 Review of Systems Constitutional Constitutional: Denies fever(s) and Denies headache(s) ENT Ears, Nose, Mouth, and Throat: Denies headache(s) and Denies sore throat Cardiovascular Cardiovascular: Denies chest pain and Denies dyspnea Respiratory Respiratory: Reports cough and Denies dyspnea Gastrointestinal Gastrointestinal: Denies abdominal pain, Denies nausea and Denies vomiting Musculoskeletal Musculoskeletal: Denies myalgias Neurologic Neurologic: Denies headache(s) PFSH All Active Problems (Updated 07/29/21 @ 19:50 by LEILA Corbett) Cough (Acute) 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) Right Guyon's canal syndrome Left ankle sprain (Acute) Contusion of left little finger (Chronic) Social History Smoking/Tobacco Use Status: Current every day Tobacco Type: cigarettes Smoking risk assessment performed?: Yes Alcohol Intake: never Drug use: Never Substance use type: does not use Do you feel safe at home: Yes Do you feel safe in your relationship?: Yes Exam Const General: cooperative, healthy appearing, comfortable and no acute distress Orientation: alert, awake and oriented x3 HENMT Head: normal to inspection, normocephalic and atraumatic Face and sinus: normal facial exam Mouth: moist mucous membranes Throat: posterior oropharynx normal Eyes General: appearance normal, both eyes and all related structures Conjunctivae: conjunctivae normal Neck Neck: normal visual inspection, full ROM, no meningeal signs, trachea midline and supple Resp Effort & Inspection: normal respiratory effort and able to speak in complete sentences Auscultation: clear to auscultation bilaterally Cardio Rate: regular rate Rhythm: regular rhythm Skin General skin exam: no rashes or lesions noted Neuro General: patient alert, patient awake, moves all extremities and no focal motor deficits Sensory Exam: no sensory deficits noted Psych Appearance: grossly normal Mental Status: mental status grossly normal Course Vital Signs Vital signs: Vital Signs Temperature 36.7 C 07/29/21 19:18 Pulse 112 H 07/29/21 19:18 Respiratory Rate 16 07/29/21 19:18 Blood Pressure 124/82 07/29/21 19:18 Pulse Oximetry 96 07/29/21 19:18 Temperature 36.7 C 07/29/21 19:18 Temperature Source Skin 07/29/21 19:18 Pulse 112 H 07/29/21 19:18 Respiratory Rate 16 07/29/21 19:18 Respiratory Effort Non-Labored 07/29/21 19:26 Blood Pressure 124/82 07/29/21 19:18 Blood Pressure Position Sitting 07/29/21 19:18 Pulse Oximetry 96 07/29/21 19:18 Pain Level 0 07/29/21 19:18
[2021-07-29 20:02] VITALS: BP 121/86; PULSE 99; RESP 16; O2SAT 97
[2021-07-31 14:33] LABS: COVID-19 RT-PCR UVMMC Result Positive (Negative)
--- NOTE | 2021-07-31 14:41 | W.ED.FU ---
Patient informed as to Covid positive test. She requested a work note which I will provide for her.
== END 2021-07-29 20:03 | disposition home or self-care (01) ==
PROVIDERS: Emergency Provider Physician Assistant; PCP Nurse Practitioner Family
DX: U07.1 COVID-19 (principal); R05.1 Acute cough; F17.210 Nicotine dependence, cigarettes, uncomplicated
CPT/HCPCS: 99281; U0003

== ENCOUNTER 2022-04-18 17:46 | Outpatient (REF) | payer OTHER, SELFPAY ==
[2022-04-18 19:14] LABS: Abs Immature Grans 0.06 10^3/uL (0.0-0.06); Absolute Eosinophil Count 0.16 10^3/uL (0.0-0.7); Absolute Lymphocyte Count 2.67 10^3/uL (1.2-3.4); Basophils % 0.3; Eosinophils % 0.9; HCT 39.4 % (36.0-46.0); HGB 13.2 g/dL (11.2-15.7); Immature Grans % 0.3; Lymphocytes % 15.3; MCH 30.1 pg (27.0-33.0); MCHC 33.5 % (32.0-36.0); MCV 90 fL (80-95); MPV 10.5 fL (8.0-11.0); Monocytes % 9.8; Neutrophils % 73.4; Platelet Count 285 10^3/uL (130-400); RBC 4.39 10^6/uL (3.93-5.22); RDW 12.2 % (11.7-14.6); RDW-SD 40.2 fL; WBC 17.43 10^3/uL (4.4-10.8)
[2022-04-18 19:17] LABS: ESR 29 mm/hr (0-20)
[2022-04-18 19:27] LABS: Mono Screening Negative (Negative)
[2022-04-18 19:37] LABS: Absolute Basophil Count 0.05 10^3/uL (0.0-0.2); Absolute Monocyte Count 1.71 10^3/uL (0.1-0.8); Absolute Neutrophil Count 12.79 10^3/uL (1.2-6.7)
[2022-04-18 19:42] LABS: Diff Comment Agrees w/ Instrument; RBC Morphology Normal
[2022-04-18 19:59] LABS: ALT 26 U/L (14-59); AST 13 U/L (15-37); Albumin 3.9 g/dL (3.4-5.0); Alkaline Phosphatase 82 U/L (46-116); Anion Gap 3.1 mmol/L (3-11); BUN 12 mg/dL (7-18); Bilirubin, Total 0.2 mg/dL (0.2-1.0); C-Reactive Protein 7.74 mg/dL (0.0-0.3); CO2 26.9 mmol/L (21.0-32.0); CREATININE 0.5 mg/dL (0.55-1.02); Calcium 8.8 mg/dL (8.5-10.1); Chloride 101 mmol/L (98-107); Estimated GFR 123.81 (mL/min/1.73m2); Glucose 84 mg/dL (74-106); Potassium 3.2 mmol/L (3.5-5.1); Sodium 131 mmol/L (136-145); Total Protein 6.8 g/dL (6.4-8.2)
[2022-04-20 11:12] LABS: Lyme Ab w Rflx to Lyme Confirm Negative (Negative)
[2022-04-21 20:21] LABS: Anaplasma phagocytophilum Negative (Negative); B. miyamotoi PCR Negative (Negative); Babesia divergens/MO-1 Negative (Negative); Babesia duncani Negative (Negative); Babesia microti Negative (Negative); Ehrlichia chaffeensis Negative (Negative); Ehrlichia ewingii/canis Negative (Negative); Ehrlichia muris eauclairensis Negative (Negative)
== END 2022-04-18 17:47 | disposition home or self-care (01) ==
LOC: NCHCN 17:46
PROVIDERS: PCP Nurse Practitioner Family; Visit Provider Nurse Practitioner Family
DX: M25.59 Pain in other specified joint (principal); R51.9 Headache, unspecified; J02.9 Acute pharyngitis, unspecified
CPT/HCPCS: 80053; 85652; 87798; 85025; 86140; 86308; 86618; 87070

== ENCOUNTER 2022-09-21 13:58 | Emergency (ER) | payer OTHER, SELFPAY ==
[2022-09-21 14:01] VITALS: BP 131/87; PULSE 117; RESP 18; TEMP 37.1; O2SAT 98
--- NOTE | 2022-09-21 14:15 | DI.CT_ITS ---
Exam(s) CT ABDOMEN PELVIS W EXAM: CT ABDOMEN PELVIS W CLINICAL HISTORY: Hx ventral hernias, R mid abd pain, bulge TECHNIQUE: Imaging Protocol: Axial computed tomography images with coronal and sagittal reformatted images were created and reviewed CONTRAST MATERIAL: Intravenous: Omnipaque 350 Contrast volume:100 mL Oral: Yes COMPARISON: CT CT ABDOMEN PELVIS W from 06/17/2019 FINDINGS: ABDOMEN: Lung Bases: Normal where visualized. Liver: Normal density. There are few tiny hypodensities in the liver. They are too small for further characterization but likely reflect small cysts. Portal, Superior Mesenteric, and Splenic Veins: Unremarkable. Gallbladder and Biliary Tract: No radiodense calculus or dilation. Pancreas: Normal density, no abnormal calcifications or inflammatory process. Spleen: Normal. Adrenals: No masses seen. Kidneys: Normal size, contour and axis. No radiodense stones or obstructive uropathy. No masses seen. Note is made of a retroaortic left renal vein. Abdominal Aorta: Abdominal portion non-dilated. Minimal atherosclerosis. Bowel: There are scattered diverticula in the colon, but no evidence of acute diverticulitis. There is no evidence of bowel obstruction or bowel wall thickening. Appendix is unremarkable. Peritoneal Cavity: No ascites, collection or mesenteric inflammatory response. No free air. Lymph Nodes: Within normal limits. Bones: Within normal limits for the patient's age. Soft Tissues: There is a fat containing small hernia to the right of midline just below the level of the umbilicus. PELVIS: Bladder: The urinary bladder is incompletely distended but grossly unremarkable. Reproductive Organs: Unremarkable as visualized. Lymph Nodes: Within normal limits. Bones: Within normal limits for the patient's age. IMPRESSION: 1. Small fat containing uncomplicated anterior abdominal wall hernia to the right of midline. 2. Findings were discussed with Dr. Darby at 5 p.m. on 09/21/2022. RADIATION DOSE DELIVERED: 829.19mGy.cm Total DLP DATA REPOSITORY: All CT scans at this facility are submitted to the National Radiology Data Registry (NRDR) Dose Index Registry (DIR) with the [employer] (ACR). RADIATION OPTIMIZATION: All CT scans at this facility use at least one of these dose optimization te chniques: automated exposure control; mA and/or kV adjustment per patient size (includes targeted exa ms where dose is matched to clinical indication); or iterative reconstruction.
--- NOTE | 2022-09-21 14:19 | ED.GENADUL_ITS ---
Discharge Plan Discharge Details Chief Complaint: Abd Prob Primary Care Provider: Mara Du ED Provider: Nabil Smith Home Meds and New Rx's Prescriptions: No Action esomeprazole magnesium 20 mg capsule,delayed release(DR/EC) 20 mg PO DAILY gabapentin 300 mg Capsule 300 mg PO DAILY Patient Comments: does not take gabapentin 100 mg Capsule 100 mg PO .QHS Patient Comments: does not take ibuprofen [IBU] 600 mg tablet 600 mg PO QID PRN (Reason: pain) Qty: 20 0RF Medical Decision Making 37-year-old female presents on referral from her primary care physician's office. The patient has a history of previous umbilical and left upper a bdominal ventral wall hernias that were repaired and for which she was followed in the [facility] surgery clinic. She states she is now had 10 days of recurrent right mid abdomen pain and sensation of a bulge there. She has noted some decreased appetite but has not been vomiting. Not had a fever. She has had production of both flatus and stool. On exam she is slightly tachycardic but otherwise well-appearing she does demonstrate right mid abdomen tenderness without rebound or guarding. She is at risk for recurrent hernia. IV access established, screening labs obtained, she is given fluids and acetaminophen. She is referred for CT images enhanced with oral contrast given the question of bowel hernia. As the patient presented prior to change of shift, she will be signed out to the oncoming physician. Please see the follow-up note regarding final impression and disposition. HPI General Mode of arrival: ambulatory . Date/Time Provider Initiated Documentation: 09/21/22 13:58 . Limitations to Documentation: no limitations . Information obtained by: patient . History of Present Illness 37 year old F presents to the emergency department with the chief complaint of Abdominal pain for 10 days, described as moderate and similar to prior episodes, Quality is described as dull and constant, and is localized to the abdomen. Patient reports no radiation. Patient started experiencing this day(s) and it has been intermittent. No relieving factors improve symptom(s), No exacerbating factors reported . Patient notes loss of appetite and other (6 to 8 pound weight loss). Patient did receive the following treatments prior to arrival, none Related Data Home Medications Medication Instructions Recorded Confirmed gabapentin 100 mg capsule 100 mg PO .QHS 09/02/18 11/16/21 gabapentin 300 mg capsule 300 mg PO DAILY 09/02/18 11/16/21 ibuprofen 600 mg tablet (IBU) 600 mg PO QID PRN pain #20 tabs 09/02/18 09/21/22 esomeprazole magnesium 20 mg 20 mg PO DAILY 11/01/21 09/21/22 capsule,delayed release Previous Rx's Medication Instructions Recorded ibuprofen 600 mg tablet (IBU) 600 mg PO QID PRN pain #20 tabs 09/02/18 Allergies Allergy/AdvReac Type Severity Reaction Status Date / Time Sulfa (Sulfonamide Allergy Intermediate Skin Rash Unverified 09/21/22 14:04 Antibiotics) coconut Allergy Verified 09/21/22 14:04 sulfamethoxazole Allergy Verified 09/21/22 14:04 [From Bactrim] trimethoprim [From Bactrim] Allergy Verified 09/21/22 14:04 General Stated Complaint: Abd Prob FAISAL: 3 Review of Systems Narrative: Thank no vomiting, no fever. Notes 6 to 8 pound weight loss. History of recurrent ventral hernias. 7 systems reviewed and otherwise negative PFSH All Active Problems Ear itching (Acute) 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) Right Guyon's canal syndrome Left ankle sprain (Acute) Contusion of left little finger (Chronic) Medical History Abdominal tenderness, periumbilical Constipation, chronic Contact allergic reaction Diastasis recti Dyspepsia H/O varicose veins Hx of ovarian cyst Otitis externa of both ears Tobacco abuse Ventral incisional hernia Wrist pain, right Surgical History H/O: hysterectomy Social History Smoking/Tobacco Use Status: Current every day Tobacco Type: cigarettes Smoking risk assessment performed?: Yes Alcohol Intake: never Drug use: Never Substance use type: does not use Do you feel safe at home: Yes Do you feel safe in your relationship?: Yes Exam Narrative Exam Narrative: GEN: awake, alert, oriented 3. Pleasant, well groomed, interactive. HEAD: Normocephalic, atraumatic ENT: Mucous membranes moist, oropharynx unremarkable, External ear exam unremarkable EYES: PERRL, EOMI NECK: Full ROM, no ELVER, no menigismus CHEST/RESP: Nontender, clear to auscultation bilateral, no wheeze/rhonchi/rales CARDIOVASCULAR: RRR, no murmur, rub sofiya. 2+ Rad pulse bilateral ABDOMEN: Soft, tender mid to right abdomen, no large mass appreciated. + But diminished bowel sounds EXT: Full ROM, no edema, no rash Neuro: Grossly normal neurologic exam, conversant, interactive. Psych: Speech fluent, thoughts congruent, affect normal Course Vital Signs Vital signs: Vital Signs Temperature 37.1 C 09/21/22 14:01 Pulse 117 H 09/21/22 14:01 Respiratory Rate 18 09/21/22 14:01 Blood Pressure 131/87 09/21/22 14:01 Pulse Oximetry 98 09/21/22 14:01 Temperature 37.1 C 09/21/22 14:01 Temperature Source Oral 09/21/22 14:01 Pulse 117 H 09/21/22 14:01 Respiratory Rate 18 09/21/22 14:01 Respiratory Effort Normal 09/21/22 14:03 Blood Pressure 131/87 09/21/22 14:01 Blood Pressure Position Sitting 09/21/22 14:01 Pulse Oximetry 98 09/21/22 14:01 Oxygen Delivery Method Room Air 09/21/22 14:01 Oxygen Flow Rate 0 09/21/22 14:01 Pain Level 6 09/21/22 14:01 Sign Out Sign Out Data: Sign Out Comment: R mid abdomen pain, ? hernia. Followup labs/CT Last updated by Nabil Smith MD at 09/21/22 14:30
[2022-09-21 14:43] LABS: Lactate 0.7 mmol/L (0.6-1.4)
[2022-09-21] MEDS: ACETAMINOPHEN 1,000 MG/100 ML BTL 400 MG IVPB (14:45)
[2022-09-21] MEDS: Normal Saline 1,000 ML 125 ML IV (14:46)
[2022-09-21 14:47] LABS: Abs Immature Grans 0.02 10^3/uL (0.0-0.06); Absolute Basophil Count 0.05 10^3/uL (0.0-0.2); Absolute Eosinophil Count 0.19 10^3/uL (0.0-0.7); Absolute Lymphocyte Count 2.94 10^3/uL (1.2-3.4); Absolute Monocyte Count 0.59 10^3/uL (0.1-0.8); Absolute Neutrophil Count 5.09 10^3/uL (1.2-6.7); Basophils % 0.6; Eosinophils % 2.1; HCT 37.8 % (36.0-46.0); HGB 12.8 g/dL (11.2-15.7); Immature Grans % 0.2; Lymphocytes % 33.1; MCH 29.6 pg (27.0-33.0); MCHC 33.9 % (32.0-36.0); MCV 88 fL (80-95); MPV 10.1 fL (8.0-11.0); Monocytes % 6.6; Neutrophils % 57.4; Platelet Count 266 10^3/uL (130-400); RBC 4.32 10^6/uL (3.93-5.22); RDW 12.1 % (11.7-14.6); RDW-SD 39.1 fL; WBC 8.88 10^3/uL (4.4-10.8)
[2022-09-21] MEDS: Breeza Beverage 473 ML BTL 946 ML PO (15:04)
[2022-09-21] MEDS: Omnipaque 350 MG/ML 50 ML BTL PO (15:04)
[2022-09-21 15:13] LABS: ALT 16 U/L (14-59); AST 9 U/L (15-37); Albumin 3.8 g/dL (3.4-5.0); Alkaline Phosphatase 70 U/L (46-116); Anion Gap 7.5 mmol/L (3-11); BUN 11 mg/dL (7-18); Bilirubin, Total 0.2 mg/dL (0.2-1.0); CO2 26.5 mmol/L (21.0-32.0); CREATININE 0.7 mg/dL (0.55-1.02); Calcium 8.6 mg/dL (8.5-10.1); Chloride 106 mmol/L (98-107); Estimated GFR 114.16 (mL/min/1.73m2); Glucose 108 mg/dL (74-106); Lipase 22 U/L (16-77); Potassium 3.8 mmol/L (3.5-5.1); Sodium 140 mmol/L (136-145); Total Protein 6.6 g/dL (6.4-8.2)
[2022-09-21 15:58] LABS: Bilirubin Negative (Negative); Blood Negative (Negative); Clarity Clear (Clear); Glucose Negative (Negative); Ketones Negative (Negative); Leukocyte Esterase Negative (Negative); Nitrite Negative (Negative); Specific Gravity 1.015 (1.005-1.025); Urobilinogen 0.2 mg/dL (Up to 0.2); pH 7.5 (5-8)
[2022-09-21] MEDS: Normal Saline - Diluent 50 ML VIAL IJ (16:36)
[2022-09-21] MEDS: Omnipaque 350 MG/ML 100 ML BTL IJ (16:37)
--- NOTE | 2022-09-21 17:19 | W.EDPROG ---
Date of service: 09/21/22 Time of Service: 17:20 Medical Decision Making pt's labs and imaging shows no emergent findings, has small fat continaing hernia where her pain is. She is stable, minimal tenderness without guarding to the right of the umbilicus. She is stable for d/c, she will f/u with her surgeon at [facility] and return precautions given Imaging Data Radiologic Study: Attestation: I personally reviewed and interpreted this imaging study as follows: Imaging: CT Scan Radiologist's impression: ABDOMEN: Lung Bases: Normal where visualized. Liver: Normal density. There are few tiny hypodensities in the liver.? They are too small for further characterization but likely reflect small cysts.? Portal, Superior Mesenteric, and Splenic Veins: Unremarkable.? Gallbladder and Biliary Tract: No radiodense calculus or dilation. Pancreas: Normal density, no abnormal calcifications or inflammatory process. Spleen: Normal. Adrenals: No masses seen. Kidneys: Normal size, contour and axis. No radiodense stones or obstructive uropathy. No masses seen. Note is made of a retroaortic left renal vein. Abdominal Aorta: Abdominal portion non-dilated. Minimal atherosclerosis. Bowel: There are scattered diverticula in the colon, but no evidence of acute diverticulitis.? There is no evidence of bowel obstruction or bowel wall thickening.? Appendix is unremarkable. Peritoneal Cavity: No ascites, collection or mesenteric inflammatory response.? No free air. Lymph Nodes: Within normal limits. Bones: Within normal limits for the patient's age.? Soft Tissues: There is a fat containing small hernia to the right of midline just below the level of the umbilicus.? PELVIS: Bladder: The urinary bladder is incompletely distended but grossly unremarkable.? Reproductive Organs: Unremarkable as visualized. Lymph Nodes: Within normal limits. Bones: Within normal limits for the patient's age.? IMPRESSION: 1. Small fat containing uncomplicated anterior abdominal wall hernia to the right of midline. 2. Findings were discussed with Dr. Darby at 5 p.m. on 09/21/2022. Sign Out Sign Out Data: Sign Out Comment: R mid abdomen pain, ? hernia. Followup labs/CT Last updated by Nabil Smith MD at 09/21/22 14:30 Discharge Plan Disposition Patient Disposition: Home Condition: Stable Discharge Details Clinical Impression: Abdominal pain Primary Care Provider: Mara Du ED Provider: Garry Darby Home Meds and New Rx's Prescriptions: Continued esomeprazole magnesium 20 mg capsule,delayed release(DR/EC) 20 mg PO DAILY gabapentin 300 mg Capsule 300 mg PO DAILY Patient Comments: does not take gabapentin 100 mg Capsule 100 mg PO .QHS Patient Comments: does not take ibuprofen [IBU] 600 mg tablet 600 mg PO QID PRN (Reason: pain) Qty: 20 0RF Discharge Instructions Instructions: Abdominal Pain (ED) Additional Instructions: your cat scan showed a small fat containing hernia that doesn't need intervention follow up with your surgeon if pain continues if you feel more ill, have severe worsening pain or persistent vomiting return to the emergency department
[2022-09-21 17:23] VITALS: BP 115/76; PULSE 88; TEMP 36.8; O2SAT 100
[2022-09-21 17:27] VITALS: BP 115/76; PULSE 88; RESP 16; TEMP 36.8; O2SAT 100
== END 2022-09-21 17:34 | disposition home or self-care (01) ==
PROVIDERS: Emergency Medicine; Emergency Provider Emergency Medicine; PCP Nurse Practitioner Family
DX: R10.9 Unspecified abdominal pain (principal); K43.9 Ventral hernia without obstruction or gangrene; R00.0 Tachycardia, unspecified
CPT/HCPCS: 80053; 83690; 96361; 96365; 99285; 74177; 81003; 83605; 85025; 99284; J0131; J3490; Q9967

== ENCOUNTER 2024-05-08 13:49 | Outpatient (REF) | payer OTHER, SELFPAY ==
[2024-05-08 14:47] LABS: Abs Immature Grans 0.03 10^3/uL (0.0-0.06); Absolute Eosinophil Count 0.31 10^3/uL (0.0-0.7); Absolute Lymphocyte Count 2.82 10^3/uL (1.2-3.4); Absolute Monocyte Count 0.89 10^3/uL (0.1-0.8); Absolute Neutrophil Count 5.36 10^3/uL (1.2-6.7); Basophils % 1.1 %; Eosinophils % 3.3 %; HCT 38.7 % (36.0-46.0); HGB 13.4 g/dL (11.2-15.7); Immature Grans % 0.3 %; Lymphocytes % 29.7 %; MCH 29.5 pg (27.0-33.0); MCHC 34.6 % (32.0-36.0); MCV 85 fL (80-95); MPV 10.3 fL (8.0-11.0); Monocytes % 9.4 %; Neutrophils % 56.2 %; Platelet Count 296 10^3/uL (130-400); RBC 4.55 10^6/uL (3.93-5.22); RDW 11.7 % (11.7-14.6); RDW-SD 35.8 fL; WBC 9.51 10^3/uL (4.4-10.8)
[2024-05-08 15:03] LABS: ALT 25 U/L (14-59); AST 14 U/L (15-37); Alkaline Phosphatase 65 U/L (46-116); Anion Gap 10.3 mmol/L (3-11); BUN 16 mg/dL (7-18); Bilirubin, Total 0.37 mg/dL (0.2-1.0); CO2 26.7 mmol/L (21.0-32.0); CREATININE 0.8 mg/dL (0.55-1.02); Chloride 105 mmol/L (98-107); Estimated GFR 96.06 (mL/min/1.73m2); Glucose 80 mg/dL (74-106); Lipase 25 U/L (16-77); Potassium 4.2 mmol/L (3.5-5.1); Sodium 142 mmol/L (136-145); Total Protein 6.9 g/dL (6.4-8.2)
[2024-05-08 15:33] LABS: Calcium 9.3 mg/dL (8.5-10.1)
== END 2024-05-08 13:50 | disposition home or self-care (01) ==
LOC: LBN 13:49
PROVIDERS: PCP Nurse Practitioner Family; Visit Provider Physician Assistant Medical
DX: R10.11 Right upper quadrant pain (principal)
CPT/HCPCS: 80053; 83690; 85025

== ENCOUNTER 2024-10-08 15:59 | Emergency (ER) | payer OTHER, SELFPAY ==
[2024-10-08 16:07] VITALS: BP 142/85; PULSE 98; RESP 20; TEMP 36.6; O2SAT 98
[2024-10-08 16:09] VITALS: BP 142/85; PULSE 98; RESP 20; TEMP 36.6; O2SAT 98
--- NOTE | 2024-10-08 16:15 | DI.CT_ITS ---
Exam(s) CT ABDOMEN PELVIS W EXAM: CT ABDOMEN PELVIS W CLINICAL HISTORY: right lower abdomen and back pain. TECHNIQUE: Imaging Protocol: Axial computed tomography images with coronal and sagittal reformatted images were created and reviewed CONTRAST MATERIAL: Intravenous: Omnipaque-350 100cc Oral: None COMPARISON: CT CT ABDOMEN PELVIS W from 09/21/2022 FINDINGS: VISUALIZED LUNG BASES: No nodules nor pleural effusions evident. ABDOMEN: There has been repair of the previously described right paracentral anterior abdominal hernia. There is presently no evidence of anterior abdominal wall hernia nor inguinal hernia. There is no ascites . No bowel obstruction. No free air nor abscess. LIVER: There is a solitary small 3 millimeter benign cyst in the upper right hepatic lobe, unchanged from August 2022. No additional new focal liver findings evident. No dilated intrahepatic ducts. GALLBLADDER/BILIARY: No obvious gallbladder pathology. CBD is not dilated. PANCREAS: No evidence of pancreatic mass nor dilatation of the pancreatic duct. SPLEEN: Spleen is not enlarged. No obvious intrasplenic lesions. Splenic and portal veins are paten t. ADRENALS: There are no significant adrenal masses. KIDNEYS:Retroaortic left renal vein again noted. No solid renal masses. No calculi nor hydronephros is.. ABDOMINAL AORTA: Abdominal aorta is not enlarged. LYMPH NODES:There is no retroperitoneal nor paraaortic adenopathy. ABDOMINAL WALL: No evidence of significant anterior abdominal wall nor inguinal hernia. GI: There is no evidence of bowel obstruction, free air, nor abscess. PELVIS: GI: No evidence of appendicitis.No evidence of sigmoid diverticulitis. LYMPH NODES: There is no intrapelvic nor inguinal adenopathy. REPRODUCTIVE: The uterus is again noted to be surgically absent. No abnormal adnexal masses. URINARY BLADDER: No calculi nor obvious masses evident. Pelvic ureters are not dilated. OSSEOUS: No fractures and no significant osseous lesions. IMPRESSION: 1. No acute findings in the abdomen pelvis. 2. The previously described anterior abdominal wall hernia has been repaired and there is presently n o evidence of anterior abdominal hernia. No bowel obstruction. No free air. No abscess. No ascite s. 3. Prior hysterectomy again evident. No abnormal adnexal masses. Called by myself to ER physician 10/08/2024 at 5:20 p.m. RADIATION DOSE DELIVERED: 215.42mGy.cm Total DLP DATA REPOSITORY: All CT scans at this facility are submitted to the National Radiology Data Registry (NRDR) Dose Index Registry (DIR) with the [employer] (ACR). RADIATION OPTIMIZATION: All CT scans at this facility use at least one of these dose optimization te chniques: automated exposure control; mA and/or kV adjustment per patient size (includes targeted exa ms where dose is matched to clinical indication); or iterative reconstruction.
--- NOTE | 2024-10-08 16:15 | DI.CT_ITS ---
Exam(s) CT LUMBAR SPINE RECONS EXAM: CT LUMBAR SPINE RECONS CLINICAL HISTORY: lower back pain. TECHNIQUE: Imaging Protocol: Axial computed tomography images with coronal and sagittal reformatted images were created and reviewed COMPARISON: CT CT ABDOMEN PELVIS W from 10/08/2024 FINDINGS: Bones: There are no fractures, listhesis, nor pars defects. There are no lytic nor blastic osseous l esions evident. INDIVIDUAL LEVELS: T12-L1:No disc herniation nor canal stenosis. Facet joints unremarkable. No foraminal stenosis. L1-2: No disc herniation nor canal stenosis. Facet joints unremarkable. No foraminal stenosis. L2-3: No disc herniation nor canal stenosis. Facet joints unremarkable. No Foraminal stenosis L3-4: Mild central annular bulging. No prominent disc herniation. Central canal dimensions are low er normal. Facet joints unremarkable. No foraminal stenosis. L4-5: No significant disc space narrowing. No disc herniation or central canal stenosis. No signif icant foraminal stenosis. No significant facet arthropathy. L5-S1: No obvious disc herniation or central canal stenosis. No significant facet arthropathy. No significant foraminal stenosis. The visualized sacroiliac joints and sacrum appear unremarkable. PARASPINAL SOFT TISSUES: Visualized paraspinal tissues appear unremarkable. Retroaortic left renal vein incidentally noted. This is seen in approximately 5 percent of the gener al population. IMPRESSION: 1. No significant findings on this CT scan of the lumbosacral spinal column. RADIATION DOSE DELIVERED: 215.42mGy.cm Total DLP DATA REPOSITORY: All CT scans at this facility are submitted to the National Radiology Data Registry (NRDR) Dose Index Registry (DIR) with the [employer] (ACR). RADIATION OPTIMIZATION: All CT scans at this facility use at least one of these dose optimization te chniques: automated exposure control; mA and/or kV adjustment per patient size (includes targeted exa ms where dose is matched to clinical indication); or iterative reconstruction.
--- NOTE | 2024-10-08 16:20 | ED.GENADUL_ITS ---
Discharge Plan Disposition Patient Disposition: Home Condition: Stable Discharge Details Clinical Impression: Back pain, Abdominal pain Primary Care Provider: Sri Fragoso ED Provider: Garry Darby Home Meds and New Rx's Prescriptions: New ondansetron 4 mg tablet,disintegrating 4 mg PO Q8H PRN (Reason: nausea and vomiting) Qty: 30 0RF Continued esomeprazole magnesium 20 mg capsule,delayed release(DR/EC) 20 mg PO DAILY ibuprofen [IBU] 600 mg tablet 600 mg PO QID PRN (Reason: pain) Qty: 20 0RF albuterol sulfate 90 mcg/actuation HFA aerosol inhaler INHALATION PRN Patient Comments: INHALE 2 PUFFS BY MOUTH EVERY 4 HOURS FOR 14 DAYS NEEDED Discontinued gabapentin 300 mg Capsule 300 mg PO DAILY Patient Comments: does not take gabapentin 100 mg Capsule 100 mg PO .QHS Patient Comments: does not take Discharge Instructions Additional Instructions: Your blood work and CAT scan did not show any concerning findings at this time. I suspect you have musculoskeletal back pain which will resolve with time. You can try [id number] lidocaine patches in addition to ibuprofen and Tylenol. Follow dosing instructions on the packaging. If you are not improving within a week follow-up with your primary care provider. If you feel signi ficantly more ill or have new symptoms such as persistent vomiting despite the nausea medication return to the emergency department for reevaluation. HPI General Mode of arrival: ambulatory . Date/Time Provider Initiated Documentation: 10/08/24 16:01 . Limitations to Documentation: no limitations . Information obtained by: patient . History of Present Illness 39 year old F presents to the emergency department with the chief complaint of right lower abdomen and back pain, described as moderate, Quality is described as other (cramping), and is localized to the back and abdomen. Patient started experiencing this hour(s) (7) and it has been constant. No relieving factors improve symptom(s), No exacerbating factors reported . Patient notes other (nausea); denies fever/chills. Patient did receive the following treatments prior to arrival, NSAID Related Data Home Medications ?Medication ?Instructions ?Recorded ?Confirmed ibuprofen 600 mg tablet (IBU) 600 mg PO QID PRN pain #20 tabs 09/02/18 10/08/24 esomeprazole magnesium 20 mg 20 mg PO DAILY 11/01/21 10/08/24 capsule,delayed release albuterol sulfate 90 mcg/actuation inhalation PRN 10/08/24 aerosol inhaler ondansetron 4 mg disintegrating 4 mg PO Q8H PRN nausea and 10/08/24 tablet vomiting #30 tabs Previous Rx's ?Medication ?Instructions ?Recorded ibuprofen 600 mg tablet (IBU) 600 mg PO QID PRN pain #20 tabs 09/02/18 ondansetron 4 mg disintegrating 4 mg PO Q8H PRN nausea and 10/08/24 tablet vomiting #30 tabs Allergies Allergy/AdvReac Type Severity Reaction Status Date / Time Sulfa (Sulfonamide Allergy Intermediate Skin Rash Unverified 10/08/24 16:11 Antibiotics) coconut Allergy Hives Verified 10/08/24 16:11 sulfamethoxazole (From Allergy Skin Rash Verified 10/08/24 16:11 Bactrim) trimethoprim (From Bactrim) Allergy Skin Rash Verified 10/08/24 16:11 General Stated Complaint: Abd Prob FAISAL: 3 Review of Systems All systems reviewed & are unremarkable except as noted in HPI and below Constitutional Constitutional: Denies chills, Denies fever(s) and Denies weakness Cardiovascular Cardiovascular: Denies chest pain and Denies dyspnea Respiratory Respiratory: Denies cough and Denies dyspnea Gastrointestinal Gastrointestinal: Reports abdominal pain, Denies nausea and Denies vomiting Musculoskeletal Musculoskeletal: Reports back pain Neurologic Neurologic: Denies weakness Psychiatric Psychiatric: Denies depression Exam Const General: no acute distress Orientation: alert [facility] Head: normal to inspection Ears: external ears normal General nose exam: external nose normal Mouth: moist mucous membranes Eyes General: appearance normal, both eyes and all related structures Neck Neck: normal visual inspection Resp Effort & Inspection: normal respiratory effort and able to speak in complete sentences Cardio Rate: regular rate GI Palpation: soft and tender Back/Spine/Pelvis Back: no CVA tenderness Thoracic/Lumbar Spine: lumbar spinal tenderness Skin General skin exam: no rashes or lesions noted Neuro General: patient alert and patient oriented x3 Extrem General: normal to inspection Psych Mental Status: mental status grossly normal Course Vital Signs Vital signs: Vital Signs Temperature 36.6 C 10/08/24 16:07 Pulse 98 H 10/08/24 16:07 Respiratory Rate 20 10/08/24 16:07 Blood Pressure 142/85 H 10/08/24 16:07 Pulse Oximetry 98 10/08/24 16:07 Temperature 36.6 C 10/08/24 16:09 Pulse 98 H 10/08/24 16:09 Respiratory Rate 20 10/08/24 16:09 Blood Pressure 142/85 H 10/08/24 16:09 Blood Pressure Position Sitting 10/08/24 16:09 Pulse Oximetry 98 10/08/24 16:09 Oxygen Delivery Method Room Air 10/08/24 16:09 Oxygen Flow Rate 0 10/08/24 16:09 Medical Decision Making 39-year-old female who states she has a history of IBS comes in with 1 day of lower abdominal cramping and also right lower back pain. Denies any fevers, chills, vomiting but has had nausea. Denies any alcohol or drug use, she quit smoking few years ago. She is status post hysterectomy years ago. She is well- appearing in no distress, she does have tenderness in the right lower quadrant without guarding and also lower lumbar spinous process tenderness without visible palpable deformities. She has no saddle anesthesia. She has intact distal sensation and pulses. I suspect this is likely her IBS and a component of musculoskeletal back pain but will obtain a CT abdomen pelvis with recons of the lumbar spine and also CBC, CMP and lipase. No findings on exam or history to suggest entities such as spinal epidural abscess or cauda equina Labs and imaging unremarkable. Patient is stable. Given reassuring workup I feel she is stable for discharge and can follow-up with her PCP. Suspect musculoskeletal back pain and also IBS. Return precautions given Differential Diagnosis Differential Diagnosis: IBS, disc herniation, kidney stone Medical Records Medical records reviewed: Yes I reviewed the patient's medical records. Lab Data Lab results reviewed: Yes I reviewed the patient's lab results. Quality:SDND Health Related Social Needs: No Data to Display PFSH All Active Problems (Updated 10/08/24 @ 18:02 by Garry Darby MD) Abdominal pain (Acute) Back pain (Acute) Ear itching (Acute) 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) Right Guyon's canal syndrome Left ankle sprain (Acute) Contusion of left little finger (Chronic) Medical History Abdominal tenderness, periumbilical Constipation, chronic Contact allergic reaction Diastasis recti Dyspepsia H/O varicose veins Hx of ovarian cyst Otitis externa of both ears Tobacco abuse Ventral incisional hernia Wrist pain, right Surgical History H/O: hysterectomy Social History Smoking/Tobacco Use Status: Current every day Tobacco Type: e-cigarettes Smoking risk assessment performed?: Yes Alcohol Intake: never Drug use: Never Substance use type: does not use Do you feel safe at home: Yes Do you feel safe in your relationship?: Yes
[2024-10-08] MEDS: Ketorolac 15 MG/ML VIAL IVP (16:35)
[2024-10-08] MEDS: Ondansetron 4 MG/2 ML VIAL IVP (16:35)
[2024-10-08 16:45] LABS: Abs Immature Grans 0.02 10^3/uL (0.0-0.06); Absolute Basophil Count 0.06 10^3/uL (0.0-0.2); Absolute Eosinophil Count 0.26 10^3/uL (0.0-0.7); Absolute Lymphocyte Count 2.69 10^3/uL (1.2-3.4); Absolute Monocyte Count 0.75 10^3/uL (0.1-0.8); Absolute Neutrophil Count 5.92 10^3/uL (1.2-6.7); Basophils % 0.6 %; Eosinophils % 2.7 %; HCT 37.5 % (36.0-46.0); HGB 12.6 g/dL (11.2-15.7); Immature Grans % 0.2 %; Lymphocytes % 27.7 %; MCH 29.5 pg (27.0-33.0); MCHC 33.6 % (32.0-36.0); MCV 88 fL (80-95); Monocytes % 7.7 %; Neutrophils % 61.1 %; Platelet Count 260 10^3/uL (130-400); RBC 4.27 10^6/uL (3.93-5.22); RDW 12.2 % (11.7-14.6); RDW-SD 39.6 fL
[2024-10-08] MEDS: Normal Saline - Diluent 50 ML VIAL IJ (16:54)
[2024-10-08] MEDS: Omnipaque 350 MG/ML 100 ML BTL 75 ML IJ (16:55)
[2024-10-08 17:00] LABS: ALT 18 U/L (14-59); AST 10 U/L (15-37); Albumin 4.1 g/dL (3.4-5.0); Alkaline Phosphatase 68 U/L (46-116); Anion Gap 6.3 mmol/L (3-11); BUN 12 mg/dL (7-18); Bilirubin, Direct 0.1 mg/dL (0.0-0.2); Bilirubin, Total 0.5 mg/dL (0.2-1.0); CO2 26.7 mmol/L (21.0-32.0); CREATININE 0.8 mg/dL (0.55-1.02); Calcium 8.9 mg/dL (8.5-10.1); Chloride 107 mmol/L (98-107); Estimated GFR 96.06 (mL/min/1.73m2); Glucose 76 mg/dL (74-106); Lipase 22 U/L (<78); Magnesium 2.3 mg/dL (1.8-2.4); Sodium 140 mmol/L (136-145)
[2024-10-08 18:45] VITALS: BP 134/79; PULSE 85; RESP 16; O2SAT 97
== END 2024-10-08 19:13 | disposition home or self-care (01) ==
PROVIDERS: Emergency Provider Emergency Medicine; PCP Internal Medicine
DX: R10.31 Right lower quadrant pain (principal); M54.50 Low back pain, unspecified; F17.290 Nicotine dependence, other tobacco product, uncomplicated
CPT/HCPCS: 80053; 83690; 99285; 74177; 82248; 83735; 85025; 99284; J1885; J2405; J3490

== ENCOUNTER 2025-02-18 15:37 | Emergency (ER) | payer OTHER, SELFPAY ==
[2025-02-18 15:45] VITALS: BP 116/80; PULSE 93; RESP 16; TEMP 36.5; O2SAT 97
--- NOTE | 2025-02-18 16:15 | DI.RAD_ITS ---
Exam(s) XR SHOULDER RT COMPLETE 2+V EXAM: XR SHOULDER RT COMPLETE 2+V CLINICAL HISTORY: R shoulder pain with ulnar radiculopathy. TECHNIQUE: 2D digital imaging was performed. COMPARISON: No exams were available for comparison FINDINGS: Five views No evidence fracture or dislocation nor abnormal soft tissue densities. The subacromial space is not diminished. There are no obvious degenerative changes in the glenohumeral and AC joints. Ipsilateral clavicle appears unremarkable. Bone density normal. No osseous lesions. IMPRESSION: No significant radiographic findings on these five views of the right shoulder. DATA REPOSITORY: RADIATION DOSE DELIVERED:
--- NOTE | 2025-02-18 16:18 | ED.GENADUL_ITS ---
Discharge Plan Disposition Patient Disposition: Home Discharge Details Clinical Impression: Radicular pain of shoulder Primary Care Provider: Sri Fragoso ED Provider: Gayatri Mares Home Meds and New Rx's Prescriptions: No Action esomeprazole magnesium 20 mg capsule,delayed release(DR/EC) 20 mg PO DAILY ibuprofen [IBU] 600 mg tablet 600 mg PO QID PRN (Reason: pain) Qty: 20 0RF albuterol sulfate 90 mcg/actuation HFA aerosol inhaler 90 mcg INHALATION PRN Patient Comments: INHALE 2 PUFFS BY MOUTH EVERY 4 HOURS FOR 14 DAYS NEEDED ondansetron 4 mg tablet,disintegrating 4 mg PO Q8H PRN (Reason: nausea and vomiting) Qty: 30 0RF Discharge Instructions Instructions: Shoulder Pain ED Additional Instructions: Please call your primary care provider first thing in the morning to schedule follow-up appointment. Outpatient evaluation and PT referral may be indicated to further workup/manage your shoulder pain with ulnar nerve paresthesias. I encourage you to use ibuprofen 600 mg every 8 hours for discomfort. You may continue to use lidocaine patches if they provide relief. Return to emergency if develop new fever/chills associated with shoulder pain, temperature change, redness/swelling/color change to the shoulder or arm, weakness in the arm, or if you are very worried and need to be rechecked again immediately Referrals: Sri Fragoso [Primary Care Provider, Medicine] [facility] General Date/Time Provider Initiated Documentation: 02/18/25 15:43 . HPI Narrative: Karoline is a 40-year-old female presents to the emergency department today for evaluation of right shoulder pain x 1.5 weeks with tingling along the 3rd, 4th and 5th fingers for the last week. She is unable to recall any inciting incident. Pain is described as sharp and pulling with movement, accompanied by constant tingling in the right hand/forearm along the ulnar nerve distribution. No loss of sensation accompanying paresthesias or neck pain, but does report muscle soreness. No accompanying temperature changes, neck pain, chills, headaches, dizziness, vision changes, nausea/vomiting, chest pain, difficulty breathing, or rashes. No history of shoulder or neck injuries. Works as a radiation therapist, frequently lifts heavy objects, is right-handed. Tylenol, ibuprofen, and IcyHot patches have not provided relief. Related Data Home Medications ?Medication ?Instructions ?Recorded ?Confirmed ibuprofen 600 mg tablet (IBU) 600 mg PO QID PRN pain # 20 tabs 09/02/18 02/18/25 esomeprazole magnesium 20 mg 20 mg PO DAILY 11/01/21 0 02/18/25 capsule,delayed release albuterol sulfate 90 mcg/actuation 90 mcg inhalation P RN 10/08/24 02/18/25 aerosol inhaler ondansetron 4 mg disintegrating 4 mg PO Q8H PRN nausea and 10/08/24 02/18/25 tablet vomiting #30 tabs Previous Rx's ?Medication ?Instructions ?Recorded ibuprofen 600 mg tablet (IBU) 600 mg PO QID PRN pain # 20 tabs 09/02/18 ondansetron 4 mg disintegrating 4 mg PO Q8H PRN nausea and 10/08/24 tablet vomiting #30 tabs Allergies Allergy/AdvReac Type Severity Reaction Status Date / Time Sulfa (Sulfonamide Allergy Intermediate Skin Rash Unverified 02/18/25 15:50 Antibiotics) coconut Allergy Hives Verified 02/18/25 15:50 sulfamethoxazole (From Allergy Skin Rash Verified 02/18/25 15:50 Bactrim) trimethoprim (From Bactrim) Allergy Skin Rash Verified 02/18/25 15:50 General Stated Complaint: Vascular FAISAL: 4 Exam Narrative Exam Narrative: General Appearance: Normal. Patient is alert and oriented, no acute distress Vital signs: Within normal limits. Cardiovascular: Normal pulses and color to arm Back, Musculoskeletal: Does have tenderness with palpation of anterior and posterior shoulder. No redness, warmth, or color change in shoulders or arm, 5/5 muscle strength to upper extremities. Decreased range of motion with Apley scratch test, pain elicited with empty can test and external rotation of shoulder. No winging of scapula noted. No pain with palpation of trapezius, C- spine, or elbow/forearm. Skin: No rashes or lesions noted Neurological: Intact sensation bilaterally. Psychiatric: Normal. Course Vital Signs Vital signs: Vital Signs Temperature 36.5 C 02/18/25 15:45 Pulse 93 H 02/18/25 15:45 Respiratory Rate 16 02/18/25 15:45 Blood Pressure 116/80 02/18/25 15:45 Pulse Oximetry 97 02/18/25 15:45 Temperature 36.5 C 02/18/25 15:45 Temperature Source Temporal Artery Scan 02/18/25 15:45 Pulse 93 H 02/18/25 15:45 Respiratory Rate 16 02/18/25 15:45 Blood Pressure 116/80 02/18/25 15:45 Blood Pressure Position Sitting 02/18/25 15:45 Pulse Oximetry 97 02/18/25 15:45 Oxygen Delivery Method Room Air 02/18/25 15:45 Oxygen Flow Rate 0 02/18/25 15:45 Pain Level 7 02/18/25 15:45 Medical Decision Making Initial Assessment: Right shoulder pain with tingling in ulnar nerve distribution, no redness or color change. Differential Diagnosis: Nerve impingement, tendinitis, rotator cuff or labral tear, other soft tissue/overuse injury, bony lesion/neoplasm. No red flags concerning for acute neurovascular compromise, septic joint/infectious process, or other red flags indicating need for emergent blood work or advanced diagnostic imaging at this time. Plan: Order x-ray, apply lidocaine patch. Dr. Bauer also into evaluate patient. I independently interpreted the following test: Shoulder x-ray, no acute abnormality noted. This was confirmed by radiologist. ED Course: X-ray of right shoulder ordered, lidocaine patch applied. No change in discomfort with lidocaine patch. Final Assessment: Right shoulder pain with possible nerve impingement or tendinitis. X-ray ordered to rule out lesions, lidocaine patch applied for pain relief and diagnostic purposes. Clinical Impression: Nerve impingement, likely related to tendinitis/overuse injury Disposition: Reviewed discharge instructions with patient, including symptomatic management, importance of follow-up with PCP for further evaluation/management and PT referral, and red flags indicating need for return to emergency care. Discharge home, follow up with PCP if symptoms persist or worsen. Patient consented to the use of [facility] Imaging Data Radiologic Study: Radiologist's impression: Exam(s) XR SHOULDER RT COMPLETE 2+V EXAM: XR SHOULDER RT COMPLETE 2+V CLINICAL HISTORY: R shoulder pain with ulnar radiculopathy. TECHNIQUE: 2D digital imaging was performed. COMPARISON: No exams were available for comparison FINDINGS: Five views No evidence fracture or dislocation nor abnormal soft tissue densities. The subacromial space is not diminished. There are no obvious degenerative changes in the glenohumeral and AC joints. Ipsilateral clavicle appears unremarkable. Bone density normal. No osseous lesions. IMPRESSION: No significant radiographic findings on these five views of the right shoulder. PFSH All Active Problems (Updated 02/18/25 @ 17:14 by Gayatri Ellison) Radicular pain of shoulder (Acute) Ear itching (Acute) 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) Right Guyon's canal syndrome Left ankle sprain (Acute) Contusion of left little finger (Chronic) Medical History Abdominal tenderness, periumbilical Constipation, chronic Contact allergic reaction Diastasis recti Dyspepsia H/O varicose veins Hx of ovarian cyst Otitis externa of both ears Tobacco abuse Ventral incisional hernia Wrist pain, right Surgical History H/O: hysterectomy Social History Smoking/Tobacco Use Status: Current every day Tobacco Type: e-cigarettes Smoking risk assessment performed?: Yes Alcohol Intake: never Drug use: Never Substance use type: does not use Do you feel safe at home: Yes Do you feel safe in your relationship?: Yes
[2025-02-18] MEDS: Lidocaine 5% Patch 1 PATCH TP (16:23)
[2025-02-18 17:57] VITALS: RESP 20
== END 2025-02-18 17:58 | disposition home or self-care (01) ==
PROVIDERS: Emergency Provider Nurse Practitioner Family; PCP Internal Medicine
DX: M54.12 Radiculopathy, cervical region (principal)
CPT/HCPCS: 99283 ×2; 73030